=== PATIENT | female | born 1995 | race African-American/Black ===

== ENCOUNTER 2017-01-20 13:43 | Emergency (ER) | payer OTHER ==
[~2017-01-20] VITALS: Ht 165.1 cm; Wt 74.8 kg
[2017-01-20] MEDS ORDERED: BACTROBAN CREAM30 G1 TOP (14:21)
[2017-01-20 14:41] VITALS: BP 109/62
== END 2017-01-20 14:45 | disposition home or self-care (01) ==
LOC: ER 13:43
DX: L73.9 Follicular disorder, unspecified (principal)